=== PATIENT | female | born 1985 | race Hispanic/Latino ===

== ENCOUNTER 2024-09-05 08:32 | Emergency (ER) | payer BC ==
[~2024-09-05] VITALS: Ht 154.9 cm; Wt 72.6 kg
--- NOTE | 2024-09-05 08:51 | ERN ---
General Chief Complaint: Headache Stated Complaint: HEADACHE Time Seen by MD: 08:36 Source: patient History of Present Illness Initial Comments Patient is a 39-year-old female coming in to be evaluated with a headache. Patient states he had she does have a history of headaches but last night she started presenting with this headache which gradually got worse. She states that today she woke up and a headache was unbearable. She feels as if her head is being compressed. She also states that the pain is more intense on the right occipital region. No fever or chills. Allergies: Coded Allergies: ibuprofen (Unverified Allergy, Unknown, 09/05/24) Past Medical History Past Medical History: Diabetes-Type II, Hypertension Past Surgical History: None ROS Dictation CONSTITUTIONAL: No chills, no fever, no weakness, no diaphoresis, no malaise. HEAD/FACE: No signs of trauma. EENT: No eye pain, no blurred vision, no tearing, no double vision, no ear pain, no ear discharge, no nose pain, no nasal congestion, no throat pain, no throat swelling, no mouth pain. RESPIRATORY: No cough, no orthopnea, no SOB, no stridor, no wheezing. CARDIOVASCULAR: No chest pain, no edema, no palpitations, no syncope. GASTROINTESTINAL/ABDOMINAL: No abdominal pain, no constipation, no diarrhea, no nausea, no vomiting. GENITOURINARY: No abnormal discharge, no dysuria, no frequent urination, no hematuria. No complaints of pain in the genitals. MUSCULOSKELETAL: No back pain, no gout, no joint pain, no joint swelling, no muscle pain, no muscle stiffness, no neck pain. INTEGUMENTARY: No change in color, no change in hair/nails, no dryness, no lesion, no lumps, no rash. NEUROLOGICAL/PSYCH: No anxiety, not depressed, no emotional problem, no headache, no numbness, no pre-existing deficit, no history of seizures, no tremors, no weakness. HEMATOLOGIC/LYMPHATIC: Not anemic, no history of blood clots, no apparent bleeding, no bruising, glands not swollen. All Systems Negative, Except as Noted. Physical Exam Physical Exam Dictation VITAL SIGNS: Reviewed. GENERAL APPEARANCE: Alert, oriented x3, no acute distress, obese. HEAD AND FACE: Non-traumatic. EYES: PERRL, pink conjunctivas, eyelid no trauma, anterior chamber clear. EARS: Pinnas intact and no signs of trauma or erythema. Ear canals clear and no discharge. TMs no erythema. NOSE: No discharge, no bleeding. OROPHARYNX: Mouth normal, teeth no caries, tongue pink. Pharynx clear, no erythema. Tonsils no exudates, no abscesses noted. Mucous membrane moist. NECK: Supple, non-tender, no thyromegaly, no masses, no JVD, no bruits. BREAST: Deferred. CHEST: No tenderness, no crepitus, no paradoxical movement, no retractions. LUNGS: Clear, well-ventilated, symmetric, no rales, no wheezing, no rhonchi, no stridor, good breath sounds bilaterally. HEART: Regular rate, regular rhythm, no murmur, no gallops. VASCULAR: No peripheral edema. ABDOMEN: Soft, positive bowel sounds, nondistended, no guarding, nontender, no rebound, no masses no hepatomegaly, no splenomegaly, no Quispe's sign, no hernias. RECTAL: Deferred. GENITAL: Deferred. NEUROLOGICAL: Normal speech, gross motor function intact, gross sensory function intact. Cranial nerves 2-12 grossly intact MUSCULOSKELETAL: Neck nontender, full range of motion, back nontender, full range of motion. EXTREMITIES: Nontender, full range of motion. Right trapezius muscle tenderness on palpation SKIN: Color pink, dry, no turgor, no rash, no lacerations, no abrasions, no contusions. LYMPHATICS: Deferred. Results Laboratory and Microbiology Lab and Micro Result Laboratory Tests Test 09/05/24 08:55 09/05/24 09:03 Urine Color COLORLESS (YELLOW) Urine Appearance CLEAR (CLEAR) Urine pH 5.5 (5.0-8.0) Urine Specific [place] 1.015 (1.001-1.031) Urine Protein NEGATIVE mg/dL (NEGATIVE) Urine Glucose (UA) >=1000 mg/dL (NEGATIVE) H Urine Ketones NEGATIVE mg/dL (NEGATIVE) Urine Occult Blood NEGATIVE (NEGATIVE) Urine Nitrate NEGATIVE (NEGATIVE) Urine Bilirubin NEGATIVE mg/dL (NEGATIVE) Urine Urobilinogen 0.2 mg/dL (0.2-1.0) Urine Leukocyte Esterase NEGATIVE [place]/uL Urine RBC 0-1 /HPF (0-1) Urine WBC 2-5 /HPF (0-1) H Urine Squamous Epithelial Cells MOD /HPF (0-2) Urine Bacteria None /HPF (None Seen) Urine HCG, Qualitative NEGATIVE (NEGATIVE) White Blood Count 8.8 K/uL (4.8-10.8) Red Blood Count 5.27 MIL/uL (4.00-5.50) Hemoglobin 10.5 g/dL (12.0-16.0) L Hematocrit 35.6 % (36-48) L Mean Corpuscular Volume 67.6 fL (79-99) L Mean Corpuscular Hemoglobin 19.9 pg (27.0-33.0) L Mean Corpuscular Hemoglobin Concent 29.5 g/dL (32.0-36.0) L Red Cell Distribution Width 21.0 % (11.0-15.5) H Platelet Count 562 K/uL (130-400) H Mean Platelet Volume 8.9 fL (7.5-10.5) Segmented Neutrophils % 72 % (40-70) H Band Neutrophils % 1 % (0-2) Lymphocytes % (Manual) 15 % (22-44) L Monocytes % (Manual) 12 % (2-9) H Nucleated Red Blood Cells 0.0 % (0.0-0.19) Differential Comment White Cell Morphology Comment See comments Platelet Morphology Comment INCREASED Red Blood Cell Morphology See comments Sodium Level 135 mmol/L (136-145) L Potassium Level 4.0 mmol/L (3.5-5.1) Chloride Level 100 mmol/L (101-111) L Carbon Dioxide Level 26 mmol/L (21-32) Blood Urea Nitrogen 12 mg/dL (7-18) Creatinine 1.0 mg/dL (0.5-1.0) Glomerular Filtration Rate Calc 73 mL/min (>90) Random Glucose 154 mg/dL (70-105) H Total Calcium 9.3 mg/dL (8.5-10.1) Labs Reviewed?: Yes MDM MDM: Differential diagnosis: Tension headache, stress headache, muscle spasms, Patient is a 39-year-old female coming in to be evaluated for tension type of headache. Laboratory workup negative for acute findings. Neurological test patient is within normal limits no meningeal signs. Patient received migraine cocktail states he feels much better. We will be discharged in stable condition. ED Course Orders Procedure Category Date Status Time Cbc W Manual Diff LAB 09/05/24 Complete 08:39 Basic Metabolic Panel LAB 09/05/24 Complete 08:39 Urinalysis LAB 09/05/24 Complete W/Microscopic 08:39 ,Urine Test LAB 09/05/24 Complete 08:39 0.9%Nacl 1000ml (Ns PHA 09/05/24 Complete 1000ml) 09:00 Prochlorperazine PHA 09/05/24 Complete 10mg/2ml Inj 09:00 Diphenhydramine Hcl PHA 09/05/24 Complete (Benadryl Inj) 09:00 Current Medications Medications (Trade) Dose Ordered Sig/Allyn Route PRN Reason Start Time Stop Time Status Last Admin Dose Admin Diphenhydramine HCl (BENAdryl INJ) 25 mg ONCE ONCE IV 09/05/24 09:00 09/05/24 09:08 DC 09/05/24 09:12 Prochlorperazine Edisylate (Compazine 10mg/ 2ml Inj) 10 mg ONCE ONCE IV 09/05/24 09:00 09/05/24 09:08 DC 09/05/24 09:11 Sodium Chloride 1,000 ml @ 0 mls/hr ONCE ONCE IV 09/05/24 09:00 09/05/24 09:08 DC 09/05/24 09:14 Vital Signs Date Time Temp Pulse Resp B/P (MAP) Pulse Ox O2 Delivery O2 Flow Rate FiO2 09/05/24 09:48 98.4 98 16 112/66 97 Room Air* 0 21 09/05/24 08:34 98.1 89 16 145/85 98 Room Air 0 DX & DISP Disposition: Discharge Departure Impression: Primary Impression: Tension headache Additional Impressions: Anemia, Dehydration Condition: Stable Scripts Lidocaine (Lidocaine Pain Relief) 4 % Adh..patch 1 PATCH TP DAILY PRN for PAIN LEVEL 1 TO 5 for 7 Days, #14 PATCH 0 Refills Prov: TANK DOWNS MD 09/05/24 Additional Instructions: FOLLOW-UP WITH PRIMARY CARE PROVIDER IN 1 TO 2 DAYS. TAKE MEDICATIONS DIRECTED HERE IN THE EMERGENCY ROOM. OKAY TO CONTINUE HOME MEDICATIONS UNLESS OTHERWISE DISCUSSED DURING YOUR VISIT IN THE EMERGENCY ROOM TODAY. RETURN TO YOUR NEAREST EMERGENCY ROOM IF SYMPTOMS WORSEN OR IF THERE IS NO IMPROVEMENT. CALL 911 IF YOU NEED IMMEDIATE ASSISTANCE. TAKE TYLENOL [id number] NEEDED AND IF NO CONTRAINDICATIONS ARE PRESENT. INCREASE ORAL HYDRATION. A WO UND CULTURE OR URINE CULTURE WAS ORDERED HERE IN THE EMERGENCY ROOM DEPARTMENT PLEASE FOLLOW-UP WITH PRIMARY CARE PROVIDER AND ADVISE THEM TO GET REPEAT PORTS FROM OUR FACILITY. IF YOU HAD ANY INDIRA WRAP/SPLINTS THAT WERE APPLIED HERE, PLEASE DO NOT REMOVE THEM UNTIL YOU SEE YOUR PRIMARY CARE OR SPECIALTY. Referrals: Referrals: RAMSEY WONG MD Time of Disposition: 11:33 TANK DOWNS MD Sep 05, 2024 08:51
[2024-09-05 09:11] LABS: HEMATOCRIT 35.6 % (36-48); MEAN CORPUSCULAR HEMOGLOBIN 19.9 pg (27.0-33.0); MEAN CORPUSCULAR HGB CONC 29.5 g/dL (32.0-36.0); MEAN CORPUSCULAR VOLUME 67.6 fL (79-99); PLATELET COUNT (AUTO) 562 K/uL (130-400); RED BLOOD CELL COUNT(AUTO) 5.27 MIL/uL (4.00-5.50); WHITE BLOOD COUNT (AUTO) 8.8 K/uL (4.8-10.8)
[2024-09-05] MEDS: PROCHLORPERAZINE 10MG/2ML INJ IV ONE (09:11)
[2024-09-05] MEDS: DiphenhydrAMINE HCL 50 MG/ML VIAL IV ONE (09:12)
[2024-09-05] MEDS: 0.9%NACL 1000ML 1,000 ML IV ONE (09:14)
[2024-09-05 09:21] LABS: HCG,QUALITATIVE URINE NEGATIVE (NEGATIVE)
[2024-09-05 09:50] LABS: APPEARANCE,URINE CLEAR (CLEAR); BILIRUBIN,URINE NEGATIVE (NEGATIVE); COLOR,URINE COLORLESS (YELLOW); GLUCOSE, URINE (UA) >=1000 mg/dL (NEGATIVE); KETONES,URINE NEGATIVE (NEGATIVE); LEUKOCYTE ESTERASE ,URINE NEGATIVE Leu/uL (NEGATIVE); MUCUS,URINE RARE LPF (None Seen); NITRATE,URINE NEGATIVE (NEGATIVE); OCCULT BLOOD,URINE NEGATIVE (NEGATIVE); PH,URINE 5.5 (5.0-8.0); PROTEIN,URINE NEGATIVE (NEGATIVE); RBC,URINE 0-1 /HPF (0-1); SQUAMOUS EPITHELIAL CELL,UR MOD /HPF (0-2); UROBILINOGEN,URINE 0.2 mg/dL (0.2-1.0)
[2024-09-05 10:57] LABS: BAND NEUTROPHILS % (MANUAL) 1 % (0-2); LYMPHOCYTES % (MANUAL) 15 % (22-44); MONOCYTES % (MANUAL) 12 % (2-9); SEGMENTED NEUTROPHILS % 72 % (40-70)
[2024-09-05 10:59] LABS: PLATELET MORPHOLOGY COMMENT INCREASED
[2024-09-05 11:02] LABS: TOTAL CELLS COUNTED 100
[2024-09-05] MEDS ORDERED: LIDO1ADH71 TP (11:35)
[2024-09-05 12:00] VITALS: BP 135/75; PULSE 95; RESP 18; TEMP 98.1; O2SAT 98
== END 2024-09-05 12:10 | disposition home or self-care (01) ==
LOC: EDH 08:32
DX: G44.209 Tension-type headache, unspecified, not intractable (principal); D64.9 Anemia, unspecified; E86.0 Dehydration; E11.9 Type 2 diabetes mellitus without complications; I10 Essential (primary) hypertension; Z88.6 Allergy status to analgesic agent
CPT/HCPCS: 99284; 96374; 96361; 96375; 80048; 85025; 81001; 81025; 36415; J1200; J7030; J0780